=== PATIENT | female | born 1980 | race Caucasian/White ===

== ENCOUNTER → 2016-07-08 | Outpatient (CLI) | payer MEDICAID ==
[~2016-07-08] MED LIST: CLAR40CA PO; DOXY0.02 PO; HYDR-3533 PO; LEXA10TA PO; MEDR4PAK PO; NITR100C4 PO; NORT25CA PO; ORTHTAB4 PO; PANT40TA3 PO; PERC10TA27 PO; PERC5TAB12 PO; PYRI200T4 PO; VITA2000 PO
== END ==
LOC: CPRE 10:38
PROVIDERS: ATTEND Podiatrist Primary Podiatric Medicine
DX: Z01.812 Encounter for preprocedural laboratory examination (principal); M72.2 Plantar fascial fibromatosis

== ENCOUNTER → 2016-07-12 | Day surgery (SDC) | payer MEDICAID ==
[~2016-07-12] VITALS: Ht 175.3 cm; Wt 110.4 kg
[~2016-07-12] MED LIST changes: +*HYDROmorphone PF 1 MG VIAL PERIprocedural Use ONLY ONE; +*ONDANSETRON 4 MG VIAL PERIprocedural Use ONLY ONE; +ACETAMINOPHEN 1000 MG/100 ML VIAL IV ONE; +BETAMETHASONE SOD PHOS/ACETATE SUSP 30 MG/5 ML VIAL ONE; +BUPIVACAINE HCL PF 0.5% 30 ML VIAL ONE; +DEXAMETHASONE SOD PHOS 4 MG/ML VIAL ONE; +DO NOT ADM ANY ANTICOAGULANT DRUGS XX PRN; +INSULIN HUMAN REGULAR 1,000 UNITS/10 ML VIAL SQ PRN; +LACTATED RINGER'S 1000 ML INJ 1,000 ML IV ONE; +LACTATED RINGER'S 1000 ML IV SCH; +LIDOCAINE HCL 2% 50 ML VIAL ONE; +METOPROLOL TARTRATE 25 MG TAB PO PRN; +MIDAZOLAM HCL 2 MG/2 ML VIAL ONE; +MORPHINE SULFATE 4 MG/ML INJ ONE; +NALOXONE HCL 0.4 MG/ML AMP IV PRN; +ONDANSETRON HCL 4 MG/2 ML VIAL IV PUSH ONE; +PROPOFOL 200 MG/20 ML AMP IV ONE; +Post-op Orders (for Pharmacy) MISC XX ONE; +SODIUM CHLORID 0.9% 500 ML IV SCH; +SODIUM CHLORIDE 0.9% FLUSH 10 ML FLUSH IV FLUSH PRN; +SODIUM CHLORIDE 0.9% FLUSH 10 ML FLUSH IV FLUSH SCH; +SODIUM CHLORIDE 0.9% INJ 100 ML ONE; +TRIAMCINOLONE ACETONIDE 40 MG/ML VIAL ONE; +ceFAZolin 1,000 MG/NS 100 ML IV SCH; +ceFAZolin INJ 1,000 MG VIAL ONE
[2016-07-12 09:42] VITALS: BP 162/94; PULSE 103; RESP 18; TEMP 98.8; O2SAT 97
--- NOTE | 2016-07-12 12:38 | PD.OP ---
Operative Report Date of Surgery: Jul 12, 2016 Preoperative Diagnosis: (1) Plantar fasciitis of right foot Postoperative Diagnosis: (1) Plantar fasciitis of right foot Procedure: Plantar fasciectomy right foot Anesthesia: General inhalation Surgeon: Gildardo Arreola DPM [employer] Educator(s): LUCRETIA Turner Operation and Findings: Patient is brought to the OR and placed on the operating table in the supine position. A pneumatic ankle cuff was placed around the patient's right ankle after adequate padding. Patient was given general inhalation anesthesia. The right foot was prepped and draped in the year usual sterile manner. After the appropriate timeout was performed the right foot was elevated above the operating table for a period of 3 minutes at which time the pneumatic ankle cuff was inflated to 250 mmHg. Foot was lowered to the operating table and attention was directed to the plantar medial aspect of the right heel. Should be noted that the patient had a small percutaneous partial plantar fasciotomy performed in the past but still developed lateral pressure. At this time a 2-1/ 2 linear incision was made parallel to the plantar fashion on the plantar medial aspect of the right heel. The incision was deepened using sharp and blunt dissection taking care to tie off any superficial bleeding vessels. The incision was deepened to the level of the plantar fascia were using a freer elevator the dorsal aspect and plantar aspect of the plantar fascia was freed up from medial to lateral across the entire aspect of the plantar heel. 2 Julita hemostats were then utilized to clamp the fascia and using a 15 blade small piece of plantar fascia was excised releasing the entire plantar band. The area is flushed with copious amounts of sterile saline. Subcutaneous tissue was closed with 2-0 Vicryl. Skin edges were closed with 3-0 Prolene. The area was anesthetized with 10 cc of 0.5% Marcaine plain. Total cuff time was 24 minutes. Incision was dressed with Adaptic 4 x 4's and Ryann. Jeffy bandage was applied. Estimated blood loss was less than 10 cc. Sponge and instrument count were noted to be correct. Patient tolerated procedures and anesthesia well and left the OR to PACU in apparent satisfactory conditions with all vital signs stable and the vascular status intact to the right foot. Gildardo Arreola DPM Jul 12, 2016 12:38
== END | disposition home or self-care (01) ==
LOC: HSDC 08:47
PROVIDERS: ATTEND Podiatrist Primary Podiatric Medicine
DX: M72.2 Plantar fascial fibromatosis (principal)
CPT/HCPCS: 01470; 28060; J0131; J0690; J1100; J1170; J2250; J2270; J2405; J3010; J7120; L3260; J0702; J3301